=== PATIENT | male | born 1985 | race Caucasian/White ===

== ENCOUNTER 2019-09-22 06:18 | Emergency (ER) | payer SELFPAY ==
[~2019-09-22] VITALS: Ht 167.6 cm; Wt 73.0 kg
[2019-09-22] MEDS ORDERED: HYDROGEN PEROXIDE 118 ML SOLUTION TP ONE (06:45)
[2019-09-22] MEDS ORDERED: PERTUSS(ACELL),DIPH,TET VAC/PF 0.5 ML VIAL IM ONE (08:30)
[2019-09-22] MEDS ORDERED: BACITRACIN 0.9 GM PACKET OINTMENT TP ONE (09:00)
[2019-09-22] MEDS ORDERED: LIDOCAINE 1% 10 ML VIAL INJ ONE (09:00)
[2019-09-22 10:06] VITALS: BP 135/71
== END 2019-09-22 10:34 | disposition home or self-care (01) ==
LOC: EMS 06:22
DX: S01.01XA Laceration without foreign body of scalp, initial encounter (principal); S61.411A Laceration without foreign body of right hand, initial encounter; S80.811A Abrasion, right lower leg, initial encounter; F17.210 Nicotine dependence, cigarettes, uncomplicated; Y04.0XXA Assault by unarmed brawl or fight, initial encounter; Y93.89 Activity, other specified; Y92.89 Other specified places as the place of occurrence of the external cause; Y99.8 Other external cause status
CPT/HCPCS: 12004; 70450; 72125; 90471; 90715; 99285; J3490

== ENCOUNTER 2019-10-16 07:49 | Emergency (ER) | payer MEDICAID ==
[~2019-10-16] VITALS: Ht 167.6 cm; Wt 74.1 kg
[2019-10-16] MEDS ORDERED: ACET-66 PO (07:55)
[2019-10-16] MEDS ORDERED: CeFAZolin 1 GM/DEXTROSE 50 ML IV ONE (08:30)
[2019-10-16] MEDS ORDERED: SULFAMETHOX/TRIMETH DS 800-160 MG/TABLET PO ONE (08:30)
[2019-10-16] MEDS ORDERED: KETOROLAC TROMETHAMINE 30 MG/ML VIAL IVP ONE (08:30)
[2019-10-16 08:48] LABS: BASOPHILS % (AUTO) 0.4 % (0.0-2.0); EOSINOPHILS % (AUTO) 1.7 % (1.0-6.0); HEMATOCRIT 44.8 % (41-53); HEMOGLOBIN 15.3 g/dL (13.5-17.5); LYMPHOCYTES # (AUTO) 1.4 K/uL (1.0-4.8); LYMPHOCYTES % (AUTO) 13.4 % (22.0-44.0); MEAN CORPUSCULAR HEMOGLOBIN 31.8 pg (26.0-34.0); MEAN CORPUSCULAR HGB CONC 34.2 G/dL (31.0-37.0); MEAN CORPUSCULAR VOLUME 93 fL (80-100); MONOCYTES # (AUTO) 0.9 K/uL (0.1-1.0); NEUTROPHILS # (AUTO) 8.3 K/uL (1.8-7.7); NEUTROPHILS % (AUTO) 76.5 % (40.0-70.0); PLATELET COUNT (AUTO) 315 K/uL (150-450); RED BLOOD CELL COUNT(AUTO) 4.82 MIL/uL (4.50-5.90); RED CELL DISTRIBUTION WIDTH 13.2 % (11.5-14.5)
[2019-10-16 09:18] LABS: ANION GAP 4 mmol/L (8-16); CALCIUM, TOTAL 9.2 mg/dL (8.8-10.5); CARBON DIOXIDE 31 mmol/L (22-29); CHLORIDE 101 mmol/L (98-107); CREATININE 0.84 mg/dL (0.60-1.30); GLOMERULAR FILTR. RATE CALC > 60 mL/min (>60); GLUCOSE,RANDOM 89 mg/dL (70-110); POTASSIUM 4.6 mmol/L (3.5-5.1); SODIUM SERUM 136 mmol/L (136-145); UREA NITROGEN, BLOOD 17 mg/dL (7-18)
[2019-10-16 09:23] LABS: ALANINE AMINOTRANSFERASE 99 U/L (12-78); ALBUMIN 4.1 g/dL (3.4-5.0); ALKALINE PHOSPHATASE 101 U/L (46-116); ASPARTATE AMINOTRANSFERASE 47 U/L (15-37); BILIRUBIN,TOTAL 0.5 mg/dL (0.1-1.0)
[2019-10-16 09:26] LABS: LACTIC ACID 1.1 mmol/L (0.4-2.0)
[2019-10-16] MEDS ORDERED: ONDANSETRON HCL 4 MG/2 ML VIAL IVP ONE (09:45)
[2019-10-16] MEDS ORDERED: MORPHINE SULFATE 4 MG/ML SYRINGE IVP ONE (09:45)
[2019-10-16 10:22] VITALS: BP 160/88
== END 2019-10-16 11:28 | disposition home or self-care (01) ==
LOC: EMS 07:52
DX: L03.011 Cellulitis of right finger (principal); I10 Essential (primary) hypertension
CPT/HCPCS: 36415; 80053; 83605; 85025; 96365; 96375; 99284; J0690; J1885; J2270; J2405

== ENCOUNTER 2019-11-13 12:38 | Emergency (ER) | payer MEDICAID ==
[~2019-11-13] VITALS: Ht 167.6 cm; Wt 65.0 kg
[~2019-11-13 12:38] MED LIST: ACET-66 PO
[2019-11-13] MEDS ORDERED: CEPHALEXIN MONOHYDRATE 500 MG CAPSULE PO ONE (14:00)
[2019-11-13] MEDS ORDERED: SULFAMETHOX/TRIMETH DS 800-160 MG/TABLET PO ONE (14:00)
[2019-11-13 14:17] LABS: BASOPHILS % (AUTO) 0.9 % (0.0-2.0); EOSINOPHILS % (AUTO) 5.4 % (1.0-6.0); HEMOGLOBIN 13.8 g/dL (13.5-17.5); LYMPHOCYTES # (AUTO) 2.3 K/uL (1.0-4.8); LYMPHOCYTES % (AUTO) 36.3 % (22.0-44.0); MEAN CORPUSCULAR HGB CONC 33.6 G/dL (31.0-37.0); MEAN CORPUSCULAR VOLUME 92 fL (80-100); MONOCYTES # (AUTO) 0.5 K/uL (0.1-1.0); MONOCYTES % (AUTO) 7.9 % (2.0-9.0); NEUTROPHILS # (AUTO) 3.1 K/uL (1.8-7.7); NEUTROPHILS % (AUTO) 49.5 % (40.0-70.0); PLATELET COUNT (AUTO) 283 K/uL (150-450); RED BLOOD CELL COUNT(AUTO) 4.44 MIL/uL (4.50-5.90); RED CELL DISTRIBUTION WIDTH 12.9 % (11.5-14.5)
[2019-11-13 14:33] LABS: ANION GAP 6 mmol/L (8-16); CALCIUM, TOTAL 8.8 mg/dL (8.8-10.5); CARBON DIOXIDE 28 mmol/L (22-29); CHLORIDE 100 mmol/L (98-107); CREATININE 0.87 mg/dL (0.60-1.30); GLOMERULAR FILTR. RATE CALC > 60 mL/min (>60); GLUCOSE,RANDOM 120 mg/dL (70-110); POTASSIUM 3.9 mmol/L (3.5-5.1); SODIUM SERUM 134 mmol/L (136-145); UREA NITROGEN, BLOOD 19 mg/dL (7-18)
[2019-11-13] MEDS ORDERED: VANCOMYCIN HCL 1 GM/D5% WATER 200 ML IV ONE (19:45)
[2019-11-13] MEDS ORDERED: CefTRIAXone 1 GM/DEXTROSE 50 ML IV ONE (19:45)
[2019-11-13 20:21] VITALS: BP 123/79
== END 2019-11-13 20:22 | disposition left against medical advice (07) ==
LOC: EDUNIT# 12:38 → EMS 12:42
DX: M86.9 Osteomyelitis, unspecified (principal); F17.210 Nicotine dependence, cigarettes, uncomplicated
CPT/HCPCS: J3370